=== PATIENT | male | born 1955 | race Caucasian/White ===

== ENCOUNTER 2016-06-07 10:40 | Day surgery (SDC) | payer MEDICARE ==
[~2016-06-07] VITALS: Ht 175.3 cm; Wt 81.6 kg
--- NOTE | 2016-06-09 11:25 | NUR ---
Received [facility]AD person referral. Called and spoke with pt. Pt states he tried to harm himself "years ago." Deny current thoughts of self harm and does not have a plan.
[2016-12-07] MEDS ORDERED: MS CONTIN DPS60 MG PO (12:55)
[2016-12-07] MEDS ORDERED: ASPIR 8181 MG PO (12:56)
[2016-12-07] MEDS ORDERED: MEGESTROL ACETA20 MG PO (12:56)
[2016-12-07] MEDS ORDERED: MS CONTIN DPS15 MG PO (12:56)
[2016-12-07] MEDS ORDERED: DUONEB DPS3 ML IH (12:57)
[2016-12-07] MEDS ORDERED: NICOTINE PATCH1 EAC2 TD (12:58)
[2016-12-07] MEDS ORDERED: ATIVAN-DPS1 MG PO (12:58)
[2016-12-07] MEDS ORDERED: MAALOX DPS30 ML PO (12:59)
[2016-12-07] MEDS ORDERED: TYLENOL DPS325 MG PO (12:59)
[2016-12-07] MEDS ORDERED: MEDROL DOSEP4 MG/TAB PO (12:59)
[2016-12-07] MEDS ORDERED: AMBIEN DPS5 MG PO (13:00)
[2016-12-07] MEDS ORDERED: Z-PACK PO (13:00)
== END 2016-06-07 11:30 | disposition home or self-care (01) ==
LOC: RAD.S 10:40 → EDSTATUS 13:00 → RAD.S 06-15 09:00
DX: R91.8 Other nonspecific abnormal finding of lung field (principal); Z53.9 Procedure and treatment not carried out, unspecified reason

== ENCOUNTER 2016-06-17 08:34 | Day surgery (SDC) | payer MEDICARE ==
[~2016-06-17] VITALS: Ht 175.3 cm; Wt 81.0 kg
[2016-12-07] MEDS ORDERED: MS CONTIN DPS60 MG PO (12:55)
[2016-12-07] MEDS ORDERED: MS CONTIN DPS15 MG PO (12:56)
[2016-12-07] MEDS ORDERED: ASPIR 8181 MG PO (12:56)
[2016-12-07] MEDS ORDERED: MEGESTROL ACETA20 MG PO (12:56)
[2016-12-07] MEDS ORDERED: DUONEB DPS3 ML IH (12:57)
[2016-12-07] MEDS ORDERED: ATIVAN-DPS1 MG PO (12:58)
[2016-12-07] MEDS ORDERED: NICOTINE PATCH1 EAC2 TD (12:58)
[2016-12-07] MEDS ORDERED: MAALOX DPS30 ML PO (12:59)
[2016-12-07] MEDS ORDERED: MEDROL DOSEP4 MG/TAB PO (12:59)
[2016-12-07] MEDS ORDERED: TYLENOL DPS325 MG PO (12:59)
[2016-12-07] MEDS ORDERED: Z-PACK PO (13:00)
[2016-12-07] MEDS ORDERED: AMBIEN DPS5 MG PO (13:00)
== END 2016-06-17 14:05 | disposition home or self-care (01) ==
LOC: RAD.S 08:34 → EDSTATUS 10:00 → RAD.S 14:05
PROC: 0BBC3ZX Excision of Right Upper Lung Lobe, Percutaneous Approach, Diagnostic (ICD-10-PCS; principal; 2016-06-17)
DX: R91.8 Other nonspecific abnormal finding of lung field (principal); J44.9 Chronic obstructive pulmonary disease, unspecified; J43.9 Emphysema, unspecified; Z79.899 Other long term (current) drug therapy

== ENCOUNTER → 2016-06-21 | Outpatient (CLI) | payer MEDICARE ==
[~2016-06-21] MED LIST: AMBIEN DPS5 MG PO; ASPIR 8181 MG PO; ATIVAN-DPS1 MG PO; DUONEB DPS3 ML IH; MAALOX DPS30 ML PO; MEDROL DOSEP4 MG/TAB PO; MEGESTROL ACETA20 MG PO; MS CONTIN DPS15 MG PO; MS CONTIN DPS60 MG PO; NICOTINE PATCH1 EAC2 TD; TYLENOL DPS325 MG PO; Z-PACK PO
== END | disposition home or self-care (01) ==
LOC: RAD.S 10:00
PROC: 0BP1XDZ Removal of Intraluminal Device from Trachea, External Approach (ICD-10-PCS; principal; 2016-06-21)
DX: J93.9 Pneumothorax, unspecified (principal)